=== PATIENT | male | born 1985 | race Caucasian/White ===

== ENCOUNTER 2023-08-28 11:37 | Emergency (ER) | payer OTHER, SELFPAY ==
[2023-08-28 11:45] VITALS: BP 128/92
[2023-08-28 12:09] VITALS: BP 137/108
--- NOTE | 2023-08-28 12:16 | ED.GENMED ---
History of Present Illness
General
Chief Complaint: Chest Pain
Source: patient
Exam Limitations: none
Time Seen by Provider: 08/28/23 12:08
Nursing documentation reviewed up to this point in time: agreed with
Travel History
Have you had any contact with someone who has COVID-19?: No
Do you have any symptoms of coronavirus? Fever > 100 degrees, chills, cough, shortness of breath, sore throat, loss of taste or smell, muscle aches, or headache?: No
History of Present Illness
History of Present Illness:
Patient to ED with complaint of left chest pain. Symptoms started Sunday PM. States he took ASA without improvement. Eventially symptoms resolved. Returned again Sat PM and has been consistent thru today. Denies any n/v/diaphroesis. No SOB,
cough, trouble breathing. Denies fever/chills, recent illness. No prior history of same. Was able to go for a bike ride this AM without change in pain. No ativity intolerance. History of anxiety, panic attacks. States this does not feel lilke
typical anxiety or panic attack. Took alprazolam Sunday and sunday without improvement.
Past History
Past History
ED Past Medical History: Psychiatric (anxiety, panic attack)
ED Past Surgical History: Other (wisdom teeth)
Social History
Tobacco: Non-smoker
Alcohol: Occasional
Drug: None
Personal:
Review of Systems
Review of Systems
Allergies reviewed?: Yes
All Other Systems: ROS reviewed and negative except as documented in HPI and ROS
Constitutional: Reports no symptoms
EENT: Reports no symptoms
Respiratory: Reports no symptoms
Cardiac: Reports chest pain
ABD/GI: Reports no symptoms
: Reports no symptoms
Musculoskeletal: Reports no symptoms
Skin: Reports no symptoms
Neurological: Reports no symptoms
Psychiatric: Reports no symptoms
Phy Exam
General Physical Exam
General Presentation: well appearing and no apparent distress
General age: appears stated age
General Skin: warm and dry
General Habitus: normal
General Mental: alert
General Hydration: appears well hydrated
Cardiovascular Exam
Cardiovascular Exam: regular rate/rhythm and no edema
Pulmonary Exam
Pulmonary Exam: lungs clear and no respiratory distress
Gastrointestinal Exam
Gastrointestinal Exam: non tender and soft
Musculoskeletal Exam
Musculoskeletal Exam: full ROM and neuro vasc intact
Skin Exam
Skin Exam: normal color, warm/dry and no rash
Psychiatric Exam
Psychiatric Exam: normal mood/affect
Scores
Heart Score for Chest Pain Patients
STEMI patient?: No
History: Slightly or Non-Suspicious
ECG: Normal
Age: </= 45 years
Risk Factors: No Risk Factors
Troponin: </= Normal Limit
Heart Score for Chest Pain Patients: 0
Heart Score Risk: 2.5% MACE over next 6 weeks
Course
Orders/Labs/Results
Orders:
Orders
08/28/23 11:38
ECG [Electrocardiogram (*1)] Urgent
Reason for Study: Chest Pain
08/28/23 11:39
EKG- Treatment ONCE
08/28/23 12:20
CMP [Comprehensive Metabolic Panel] Urgent
Complete Blood Count/With Diff Urgent
DDimer [D-Dimer] Urgent
Lipase Urgent
Troponin I Urgent
08/28/23 13:33
Acetaminophen [Tylenol] 1,000 mg PO NOW STA
Mag Hydrox/Al Hydrox/Simeth [Maalox] 30 ml Phenobarb/Hyoscy/Atropine/Scop [] 10 ml PO NOW
CR Chest - 2 Views Urgent
Comment:
Reason For Exam: pain
08/28/23 13:36
Phenobarb/Hyoscy/Atropine/Scop [] 10 ml .ROUTE .[facility]
08/28/23 13:37
Mag Hydrox/Al Hydrox/Simeth [Maalox] 30 ml .ROUTE .[facility]
Abnormal Lab Results
08/28/23
12:20
MCH 31.1 H pg
(27.0-31.0)
Glucose 110 H mg/dl
(70-99)
ALT 60 H U/L
(0-50)
08/28/23 12:20
08/28/23 12:20
Vital Signs
Initial and Last Documented VS:
Initial Vital Signs
Temp Pulse Resp BP Pulse Ox
98.2 F 79 20 128/92 98
08/28/23 11:45 08/28/23 11:45 08/28/23 11:45 08/28/23 11:45 08/28/23 11:45
Last Documented Vital Signs
Temp Pulse Resp BP Pulse Ox
98.2 F 66 16 132/87 97
08/28/23 11:45 08/28/23 13:00 08/28/23 13:00 08/28/23 13:00 08/28/23 12:09
*Pulse Oximetry
Patient hypoxic: no
*EKG
Interpretation: normal
Rate: normal
Rhythm: sinus
*Critical Care Note
Total Time (30-74mins, 75-104mins- exclusive of procedures): Not Applicable
ED Attending Note
-
Portions of this chart may have been created with voice recognition software.� Occasional wrong word or��sound alike� substitutions may have occurred due to the inherent limitations of voice recognition software.
Discharge Plan
Departure
Patient Disposition: Home (Routine Discharge)
Date of Disposition: 08/28/23
Time of Disposition: 15:01
Patient with high blood pressure during this ER visit?: No
Condition: Good
Covid-19: Not Applicable
Discharge Problem:
Chest pain
Instructions: Chest Pain That Is Not Caused by the Heart (DC), Chest Pain PCP Follow Up
Prescriptions:
No Action
alprazolam 0.25 mg Tablet
0.25 mg PO PRN PRN (Reason: .as directed)
Referrals:
Scott Hurtado, DO [Family Provider] - Tomorrow
Activity Restrictions/Additional Instructions:
Return to the emergency department immediately for any changes in/worsening of your symptoms.
Interventions
Interventions:
*Risk Screen - Suicide Last Done: 08/28/23 12:10
*General Assessment Last Done: 08/28/23 12:10
*Neglect/Abuse Screening Last Done: 08/28/23 12:10
ED- Fall Risk Assessment Last Done: 08/28/23 12:23
*ED COVID-19 Vaccine History Last Done: 08/28/23 12:23
ED- Cardiac Assessment Last Done: 08/28/23 12:10
Discharge Date and Time
Print Language: MICRONESIAN
[2023-08-28 12:27] LABS: % Basophils 0.2 % (0-2); % Eosinophils 0.8 % (0-6); % Immature Granulocytes 0.2 % (0-0.5); % Lymphocytes 32.3 % (20.5-51.1); % Monocytes 6.1 % (1.7-9.3); % Neutrophils 60.4 % (42.2-75.2); Absolute Eosinophils 0.1 10^3/uL (0-0.7); Absolute Monocytes 0.4 10^3/uL (0.1-0.6); Absolute Neutrophils 3.7 10^3/uL (1.4-6.5); Hematocrit 43.3 % (39.0-52.0); Hemoglobin 15.4 g/dL (13.0-18.0); Mean Corp Hgb Conc. 35.6 g/dL (33.0-37.0); Mean Corpuscular Hgb 31.1 pg (27.0-31.0); Mean Corpuscular Volume 87.5 fL (80.0-94.0); Mean Platelet Volume 9.2 fL (7.4-10.4); Nucleated Red Blood Cells % 0 % (-); Platelet Count 244 10^3/uL (130-400); Red Blood Cell Count 4.95 10^6/uL (4.70-6.10); White Blood Cell Count 6.1 10^3/uL (4.8-10.8)
[2023-08-28 12:41] LABS: ALT (SGPT) 60 U/L (0-50); AST (SGOT) 49 U/L (17-59); Albumin 4.8 g/dl (3.5-5.0); Alkaline Phosphatase 87 U/L (38-126); Blood Urea Nitrogen 14 mg/dl (9-20); Calcium 10.1 mg/dl (8.4-10.2); Carbon Dioxide 23 mmol/L (22-30); Chloride 104 mmol/L (98-107); Glucose 110 mg/dl (70-99); Sodium 136 mmol/L (135-145); Total Bilirubin 0.7 mg/dl (0.2-1.3); Total Protein 7.9 g/dl (6.3-8.2); eGFR > 60.00
[2023-08-28 12:51] LABS: Troponin I < 0.012 ng/ml
[2023-08-28 13:00] VITALS: BP 132/87
[2023-08-28 13:15] LABS: Lipase 107 U/L (23-300)
[2023-08-28 13:28] LABS: D-Dimer < 0.27 ug/mlFEU (0.00-0.50)
[2023-08-28] MEDS: TYLENOL 1000 MG PO (13:37)
[2023-08-28] MEDS: MAALOX 40 PO (13:39)
[2023-08-28 14:00] VITALS: BP 132/85
[2023-08-28 14:23] VITALS: BP 130/88
[2023-08-28 15:00] VITALS: BP 134/80
== END 2023-08-28 15:18 | disposition home or self-care (01) ==
LOC: EMR 11:37
PROVIDERS: Nurse Practitioner; EMERGENCY PHYSICIAN Emergency Medicine; FAMILY PHYSICIAN Internal Medicine
DX: R07.9 Chest pain, unspecified (principal)
CPT/HCPCS: 99285; 71046; 80053; 83690; 84484; 85025; 85379; 93005

== ENCOUNTER → 2023-09-21 08:52 | Outpatient (REF) | payer OTHER, SELFPAY | LOC: RCS 08:52 | PROVIDERS: ATTENDING PHYSICIAN Nurse Practitioner Family | DX: R07.89 Other chest pain (principal); E78.2 Mixed hyperlipidemia | CPT/HCPCS: 93017 ==

== ENCOUNTER → 2025-03-17 10:27 | Outpatient (REF) | payer OTHER, SELFPAY | LOC: RAD 10:27 | PROVIDERS: ATTENDING PHYSICIAN Internal Medicine | DX: K75.81 Nonalcoholic steatohepatitis (NASH) (principal) | CPT/HCPCS: 76700 ==

== ENCOUNTER 2025-04-02 11:07 | Emergency (ER) | payer SELFPAY ==
[2025-04-02 11:09] VITALS: BP 151/99
--- NOTE | 2025-04-02 11:39 | ED.GENMED ---
History of Present Illness
General
Chief Complaint: Head Injury
Time Seen by Provider: 04/02/25 11:34
History of Present Illness
History of Present Illness:
39-year-old male presents emergency department fell from a standing position and struck his head on a wall of a [employer]AG[employer] pit, positive loss of consciousness that was witnessed. Reports a moderate to severe headache in the frontal skull at this time,
denies vision changes, neck pain, extremity paresthesias or vomiting. Does not take anticoagulants or antiplatelets
Past History
Past History
ED Past Medical History: Psychiatric (anxiety, panic attack)
ED Past Surgical History: Other (wisdom teeth)
Social History
Tobacco: Non-smoker
Alcohol: Occasional
Drug: None
Personal:
Review of Systems
Review of Systems
Allergies reviewed?: Yes
All Other Systems: ROS reviewed and negative except as documented in HPI and ROS
Phy Exam
Physical Exam
Physical Exam:
GEN: Well appearing, NAD, WDWN
HEENT: Normocephalic and atraumatic, oral mucosa moist, no scleral icterus, no nasal congestion
Cardiac: Regular rate
Lung: No respiratory distress, no tachypnea
MSK: No gross deformity or injuries
Skin: Good color, no pallor or jaundice, no rashes
Neuro: AO x3; CN II-XII grossly intact. BUE strength 5/5 in all guaman, sensation intact and symmetric. BLE strength 5/5 in all guaman, sensation intact and symmetric
Psych: Calm, cooperative
Sepsis
Sepsis Screening
Sepsis Assessment: Sepsis Ruled Out
Sepsis Screen
Sepsis Screen: Sepsis Ruled Out
Date: 04/02/25
Time: 18:11
Course
Orders/Labs/Results
Orders:
Orders
04/02/25 11:39
CT Head W/o Iv Contrast Urgent
Comment:
Reason For Exam: fall, head injury, +LOC
04/02/25 13:10
Ondansetron Orally Disint [Zofran Odt (Orally Disintegrating)] 4 mg PO NOW STA
04/02/25 13:11
Acetaminophen [Tylenol] 1,000 mg PO NOW STA
04/02/25 13:12
Acetaminophen [Tylenol] 1,000 mg .ROUTE .[facility]-MED [facility]
Ondansetron Orally Disint [Zofran Odt (Orally Disintegrating)] 4 mg .ROUTE .[facility]
Vital Signs
Initial and Last Documented VS:
Initial Vital Signs
Temp Pulse Resp BP Pulse Ox
98.3 F 77 16 151/99 99
04/02/25 11:09 04/02/25 11:09 04/02/25 11:09 04/02/25 11:09 04/02/25 11:09
Last Documented Vital Signs
Temp Pulse Resp BP Pulse Ox
98.3 F 77 16 151/99 99
04/02/25 11:09 04/02/25 11:09 04/02/25 11:09 04/02/25 11:09 04/02/25 11:40
MDM/Problems Addressed
MDM/Problems Addressed:
CT of the head was obtained due to the patient's loss of consciousness with severe headache, fortunately showed no evidence for skull fracture or hemorrhage. Discussed supportive care for close head injury/concussion
*Pulse Oximetry
SaO2: 99
Oxygen Mode of Delivery: Room air
Patient hypoxic: no
*Critical Care Note
Total Time (30-74mins, 75-104mins- exclusive of procedures): Not Applicable
ED Attending Note
-
Portions of this chart may have been created with voice recognition software.� Occasional wrong word or��sound alike� substitutions may have occurred due to the inherent limitations of voice recognition software.
Discharge Plan
Departure
Patient Disposition: Home (Routine Discharge)
Date of Disposition: 04/02/25
Time of Disposition: 13:28
Patient with high blood pressure during this ER visit?: No
Discharge Problem:
Closed head injury
Instructions: Head Injury in Adults (DC)
Prescriptions:
No Action
alprazolam 0.25 mg Tablet
0.25 mg PO PRN PRN (Reason: .as directed)
Referrals:
Scott Hurtado DO [Family Provider, Internal Medicine]
Stand Alone Forms: Return to Work
Interventions
Interventions:
*Risk Screen - Suicide Last Done: 04/02/25 11:09
*General Assessment Last Done: 04/02/25 13:25
*Neglect/Abuse Screening Last Done: 04/02/25 11:09
*ED COVID-19 Vaccine History Last Done: 04/02/25 13:27
*ED Influenza Vaccine History Last Done: 04/02/25 13:27
[facility] Fall Risk Assessment Tool Last Done: 04/02/25 13:26
*Nursing Disposition Last Done: 04/02/25 13:54
ED- Neurological Assessment Last Done: 04/02/25 13:00
ED-Skin Assessment Last Done: 04/02/25 13:00
Discharge Date and Time
Discharge Date/Time: 04/02/25 13:55
Print Language: SLOVENIAN
[2025-04-02] MEDS: ZOFRAN ODT (ORALLY DISINTEGRATING) 4 MG PO (13:17)
[2025-04-02] MEDS: TYLENOL 1000 MG PO (13:18)
== END 2025-04-02 13:55 | disposition home or self-care (01) ==
LOC: EMR 11:07
PROVIDERS: EMERGENCY PHYSICIAN Emergency Medicine; FAMILY PHYSICIAN Internal Medicine
DX: S09.90XA Unspecified injury of head, initial encounter (principal); W01.198A Fall on same level from slipping, tripping and stumbling with subsequent striking against other object, initial encounter; Y93.69 Activity, other involving other sports and athletics played as a team or group; Y92.39 Other specified sports and athletic area as the place of occurrence of the external cause; F41.9 Anxiety disorder, unspecified; F41.0 Panic disorder [episodic paroxysmal anxiety]
CPT/HCPCS: 99284; 70450